=== PATIENT | male | born 1980 | race Caucasian/White ===

== ENCOUNTER 2021-07-11 23:39 | Emergency (ER) | payer OTHER ==
[~2021-07-11 23:39] MED LIST: ANTIVERT 25MG T25 MG PO; BENTYL 10MG CAP10 MG PO; CIPRO500 MG PO; FLAGYL500 MG PO; IBUPROFEN600 MG PO; KEFLEX500 MG PO; NORCO 7.5-3251 EACH PO; OMEPRAZOLE40 MG PO; ZOFRAN4 MG PO
== END 2021-07-12 01:53 | disposition home or self-care (01) ==
LOC: ER1 23:39
DX: S09.90XA Unspecified injury of head, initial encounter (principal); H53.8 Other visual disturbances; F17.210 Nicotine dependence, cigarettes, uncomplicated; W22.8XXA Striking against or struck by other objects, initial encounter
CPT/HCPCS: 70450; 99284